=== PATIENT | female | born 1960 | race Caucasian/White ===

== ENCOUNTER 2021-08-25 09:37 | Day surgery (SDC) | payer BC, SELFPAY ==
[2021-08-18 10:09] VITALS: BMI 27.5
--- NOTE | 2021-08-24 16:59 | HP_ITS ---
DATE OF SERVICE: 08/25/2021 PREOPERATIVE DIAGNOSIS: Hallux abductovalgus deformity, right foot. PLANNED PROCEDURE: Right foot Scarf bunionectomy. PAST MEDICAL HISTORY: Anxiety, cancer, gallbladder problems, headaches, sciatica, chronic sinusitis, warts, measles, mumps, chickenpox. CURRENT MEDICATIONS: Allergy medications, calcium, turmeric. PAST SURGICAL HISTORY: ACL and meniscus surgery in 2008; bunionectomy, left foot in 2017. FAMILY HISTORY: Cancer, foot problems, poor circulation, heart disease. ALLERGIES: SEASONAL, NICKEL, COPPER. SOCIAL HISTORY: The patient is a former smoker. Current nonsmoker. Denies any illicit drug use. Relates occasional alcohol use. 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 HOSPITALIZATIONS: Bunionectomy, left foot. REVIEW OF SYSTEMS: Within normal limits. HISTORY OF PRESENT ILLNESS: This is a 61-year-old female, presents with aching and tenderness of her right great toe joint that has been present for several years, has been gradually getting progressively worse, relates pain with standing, pressure and walking. Has tried rest and change in shoes without any significant relief in symptoms. PHYSICAL EXAMINATION: GENERAL: Reveals pleasant, alert, well-nourished, well-developed, well-hydrated individual, who demonstrates proper attention to body habitus, in no acute distress. She is oriented x3. NEUROLOGICAL EXAM: Reveals normal intact sensorium. Pain sensation is normal. Vibratory sensation is intact. Pinprick sensation is normal. There is no anesthesias, burning, or paresthesias bilaterally. VASCULAR EXAM: DP and PT pulses are 2/4 bilaterally. Capillary refill time is immediate to all digits. Skin temperature, elasticity, and turgor are normal bilaterally. Pigmentation is normal. There is no edema. DERMATOLOGICAL EXAM: Reveals normal texture, elasticity, and turgor. The interspaces are clear. There are no masses. There is a scar noted to the left forefoot. ORTHOPEDIC EXAM: Reveals a bunion on the right foot with a medially prominent first metatarsophalangeal joint with pain on palpation. Inflammation is absent and lateral tracking of the first MPJ is incompletely reducible. DIAGNOSTIC DATA: X-ray exam reveals normal bone and soft tissue density for the patient's age and sex. There is increased first intermetatarsal angle about 15 degrees and hallux abductus angle consistent with bunion deformity noted. Hypertrophy of the dorsal and medial first metatarsal head without subchondral cyst. Metatarsus primus elevatus is mild. Metatarsal primus protrusion is -1. Left metatarsus adductus is normal. Sesamoid position is about #6 and is bipartite tibial sesamoid and fibular sesamoid located in the interspace. PLAN: Several types of bunion surgeries were discussed with the patient in detail including, but not limited to modified العلي bunionectomy and Drew or Rex bunionectomy, shaft versus base wedge osteotomies with internal fixation and a Lapidus joint fusion with internal fixation. The risks of having surgery versus not having surgery were discussed as well as potential surgical complications including, but not limited to pain, swelling, bleeding, scarring, numbness, infection, delayed or nonhealing, floppy, unstable, shortened toe, recurrence, failure of the procedure, over-correction leading to plantar flexion downward or upper position of the toe, need for further surgery, as well as the possibility of loss of toe, foot, life, or limb. Discussed the use of local and IV, anesthesia and the usual postoperative course. No guarantees were given. The patient verbally indicated a full understanding of the above conversation and any other questions were answered to their satisfaction. Discussed the benefits and risks specifically of surgery for both the Lapidus versus a midshaft or Scarf bunionectomy. The patient defers Lapidus bunionectomy due to recovery time and wants to proceed with shaft procedure, decided on performing the Scarf bunionectomy. The patient would like to proceed with surgical treatment. She will obtain preoperative labs as well as medical clearance for surgery and anesthesia. She is made aware to stop any blood thinners including [id number] aspirin and fish oils at least 1 week prior to surgery, made aware of the fact that driving may not be allowed during a portion of the postoperative period and not to utilize any smoking tobacco products. The patient will be partial weightbearing to the heel in a surgical shoe or cast boot with crutches. The patient elected not to have a prescription, pain medication and will take [id number] Motrin or Tylenol as needed for any pain. Keisha Majano DPM LP/ELYSSA / [id number]
[2021-08-25] VITALS (7 sets, daily range): BP systolic 85–118; BP diastolic 52–89; PULSE 60–73; RESP 16–20; TEMP 36.1–36.4; O2SAT 93–100
[2021-08-25] MEDS: Lactated Ringers 1,000 ML 50 ML IVCONT (10:07)
--- NOTE | 2021-08-25 10:14 | MHC.SHP ---
Pre-Procedural Eval Section A Date of Service: 08/25/21 The patient is an INPATIENT: No Changes since office visit: No Cold of Flu in the past 2 weeks, No New Medical Problems, No Changes in Medication and No Patient answered all questions The History & Physical has been completed within 30 days and I have reviewed it.: Yes Section B Chief Complaint: hallux valgus right foot Allergies: Allergies Allergy/AdvReac Type Severity Reaction Status Date / Time copper Allergy Rash Verified 08/25/21 09:41 nickel Allergy Rash Verified 08/25/21 09:41 Plan I have reviewed the history and physical and performed a pertinent physical examination on my patient. No changes have occurred unless specified.
--- NOTE | 2021-08-25 11:16 | PM.OP ---
Brief Operative Note Date of Service: 08/25/21 Pre-op diagnosis: Hallux abducto valgus right foot Post-op diagnosis: same Procedure: Right Scarf bunionectomy Implants: Sofy asnis screws 3-0 Surgeon: Keisha Majano Anesthesia: MAC and local Was an Lining Stuffer used for this Procedure?: Yes Lining Stuffer: Kennedy Camacho Estimated blood loss (mL): 5 Tourniquet time (min): 24 Pathology: other Condition: stable Disposition: PACU
[2021-08-25] MEDS: oxyCODONE HCl Immed Release 5 MG TABLET PO (11:55)
--- NOTE | 2021-08-30 16:14 | OP_ITS ---
SURGEON: Keisha Majano DPM PREOPERATIVE DIAGNOSIS: Hallux abductovalgus deformity, right foot. POSTOPERATIVE DIAGNOSIS: Hallux abductovalgus deformity, right foot. PROCEDURE PERFORMED: Right foot Scarf bunionectomy. ESTIMATED BLOOD LOSS: 5 mL. HEMOSTASIS: Pneumatic ankle tourniquet set at 200 mmHg for 24 minutes. COMPLICATIONS: None. ANESTHESIA: Monitored anesthetic care with local consisting preoperatively of 1% lidocaine plain and 0.5% Marcaine plain. ASSISTANTS: Kennedy Camacho DPM. SPECIMENS: Bone right foot INDICATIONS FOR SURGERY: The patient had a painful bunion deformity noted to the right foot that had been getting progressively worse over the last several years. The patient states the pain has not been relieved with any conservative treatments. The above-mentioned surgery was discussed in detail with the patient including risks, benefits, and possible complications. No guarantees were given, and written and oral informed consent was obtained. DESCRIPTION OF PROCEDURE: The patient was brought into the operating room, placed on the table in the supine position. 2 g of cefazolin was administered as a prophylactic preoperative antibiotic. The above-mentioned local anesthetic, 18 mL was administered to the right foot in a regional field block fashion. The right foot was then scrubbed, prepped, and draped in a sterile manner. The foot was exsanguinated, pneumatic ankle tourniquet was inflated to 200 mmHg. Attention was directed to the first metatarsophalangeal joint where an incision was made. The incision was deepened down to subcutaneous tissue with great care being taken to retract vital neural and vascular structures and all bleeders were cauterized as necessary. A medial capsulotomy was made, medial and parallel to the extensor tendons, freeing the first metatarsal head and base of proximal phalanx. The medial eminence of the 1st metatarsal was resected using power instrumentation and passed from the operative site. Attention was directed via the same incision to the first interspace where a lateral release was performed. The deep transverse intermetatarsal ligament, the fibular sesamoidal ligament, and the adductor tendon were transected to allow the head of the first metatarsal to drift into a more corrected position. A McGlammory elevator was also introduced to free up any adhesions around the sesamoid apparatus. Attention was directed back medially where a Z type osteotomy was created with a wing pointing plantarly distally, a wing pointing dorsally proximally, and one long osteotomy connecting the two. The osteotomy was then completed with power instrumentation and the capital fragment was translocated laterally and impacted upon the first shaft with great care being taken not to cause any troughing into the canal. Next, the Sofy Asnis screw set was introduced. Two guide pins were placed. The guide pins then were measured, countersunk and two 16 mm 3-0 Sofy Asnis screws were inserted under standard technique and all guide pins were removed. The remaining medial eminence of the first metatarsal head was resected and passed from the operative site. There was excellent stabilization of the osteotomy and correction of the bunion deformity. The wound was irrigated with normal sterile saline. The capsular structures were reapproximated with 3-0 Vicryl in a continuous running fashion. The skin was reapproximated with 5-0 Monocryl in a continuous running fashion, 4-0 nylon was used as an anchor sutures distally and proximally along the incision. A zip line was then placed overlying the incision. A postoperative injection of 0.5% Marcaine plain 5 mL and 1 mL of dexamethasone was administered. The incision was then dressed with Adaptic, Betadine-soaked gauze, 4x4s, fluffs, Kerlix, cast padding, and Donovan bandage. Pneumatic ankle tourniquet was deflated. Prompt capillary refill was noted to all 5 digits. The patient tolerated procedure and anesthesia well. She was transferred to recovery room with vital signs stable and vascular status at preoperative levels. Following a period of postoperative recovery, the patient will be discharged home with written and oral postoperative instructions. She will be partial weightbearing to the heel in a surgical shoe using crutches or a knee scooter, and will follow up in my office for all postoperative followup. Keisha Majano DPM LP/ELYSSA / [id number] LINDA
== END 2021-08-25 12:50 | disposition home or self-care (01) ==
PROVIDERS: PCP Pediatrics; Visit Provider Podiatrist
PROC: (CPT 28292; principal; 2021-08-25 10:30)
DX: M20.11 Hallux valgus (acquired), right foot (principal); M21.611 Bunion of right foot; Z87.891 Personal history of nicotine dependence
CPT/HCPCS: 28292; 88304; 88311; C1713; J0690; J1100; J2250; J3010

== ENCOUNTER 2025-06-30 10:08 | Outpatient (AMB) | payer BC, SELFPAY ==
--- OUTSIDE RECORDS SUMMARY | 2025-06-30 11:23 | XMS_ITS | Clinical Summary ---
Author Organization [facility] [address] [facility] Building Address [address] [facility] [place] [address] Phone Care Team Providers Care Sales Training Coordinator Name Role Phone Chintan Rust MD Primary Care Provider Allergies Active Allergy Reactions Criticality Noted Date Comments Copper Rash 07/06/2014 Nickel Rash 07/06/2014 Other Itching 07/06/2014 Seasonal allergies Medications NON FORMULARY ALLERGY INJECTIONS- Once a week Active aspirin 81 mg EC tablet Take 1 tablet (81 mg total) by mouth 1 (one) time each day. Active calcium carb/vit D3/minerals (CALCIUM-VITAMI N D ORAL) Take by mouth. Active turmeric root extract 500 mg capsule Take 250 mg by mouth 1 (one) time each day. Active calcium carbonate (OS-MARIELOS) 1250 mg (500 mg elemental calcium) chewable tablet Chew 500 mg. 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 Followed by [employer] SALES REPRESENTATIVE Seasonal allergies 07/06/2014 Overview (10/30/2024): Dr Espinoza Immunizations Name Administration Dates Next Due Moderna SARS-CoV-2 COVID-19, mRNA, LNP-S, preservative free 02/27/2021 Td Tetanus diptheria (Tdvax) 7yo and older 03/01 Tdap Tetanus diptheria acell ular pertussis (Boostrix; Adacel) 7yo and older 05/05/2021 Surgical History Surgery Date Site/Laterality Comments KNEE SURGERY 11/12/2007 Left PROCEDURE: HISTORICAL KNEE SURGERY CHOLECYSTECTOMY 11/12/2002 PROCEDURE: FL CHOLECYSTECTOMY; COMMENT: complications, required reconstruction of bile duct HAND SURGERY 11/12/1980 Left PROCEDURE: FL UNLISTED PROCEDURE HANDS/FINGERS WISDOM TOOTH EXTRACTION 11/12/2003 Bilateral PROCEDURE: HISTORICAL WISDOM TEETH EXTRACTION FOOT SURGERY 08/25/2021 Right PROCEDURE: HISTORICAL FOOT SURGERY; COMMENT: Surgery on her Hallux Abductovalgus deformity Medical History Medical History Date Comments Seasonal allergies DX:Seasonal a llergies; COMMENT: Allergy shots, Dr. Espinoza BCC (basal cell carcinoma), face 2011 DX:BCC (basal cell carcinoma), face; COMMENT: Dr. Franklin Family History Medical History Relation Name Comments Throat cancer Brother 1 Lung cancer Father Colon cancer Mother's side aunt ADD / ADHD Son 1 ADD / ADHD Son 2 Relation Name Status Comments Brother 1 Brother 2 Alive Healthy Brother 3 Alive Heart Problem Father (Age 74) Lung CA, s moker, CHF, high cholesterol Maternal Grandfather Heart A ttack Maternal Grandmother Heart A ttack Mother Alive 80 yrs ,High ch olesterol ,HTN,Depression Mother's side aunt Paternal Grandfather Old age Paternal Grandmother Stroke Son 1 Alive Healthy Son 2 Alive Healthy Son 3 Alive Healthy Social History Tobacco Use Types Packs/Day Years Used Date Smoking Tobacco: Former Cigarettes Q uit: 07/06/1996 Smokeless Tobacco: Never Alcohol Use Standard Drinks/Week Comments Yes 6 (1 standard drink = 0.6 oz pur e alcohol) Housing Instability Answer Date Recorde d Are you worried that in the next 2 months you may not have stable housing? No 12/19/2024 Food Access & Nutrition Answer Date Rec orded Do you have access to a vari ety of food including fruits and vegetables? Yes 12/19/2024 Health Literacy Answer Date Recorded How often do you need to hav e someone help you when you read instructions, pamphlets, or other written material from your doctor or pharmacy? Rarely 12/19/2024 Caregiver: How often do you need to have someone help you when you read instructions, pamphlets, or other written material from your doctor or pharmacy? Not on file 12/19/2024 Financial Risk Answer Date Recorded How hard is it for you to pa y for the very basics like food, housing, medical care, and air conditioning / heating? Not very hard 12/19/2024 Transportation Answer Date Recorded Has the lack of transportati on kept you from meetings, work, or from getting things needed for daily living? No Has the lack of transportati on kept you from medical appointments or from getting medications? No 12/19/2024 Social Isolation Answer Date Recorded How often do you feel lonely or isolated from th ose around you? Rarely 12/19/2024 Food Risk Answer Date Recorded Within the past 12 months we worried whether our food would run out before we got money to buy more. Never true 12/19/2024 Within the past 12 months th e food we bought just didn't last and we didn't have money to get more. Never true 12/19/2024 Dependent Care Answer Date Recorded Do you need help finding or paying for care for your loved ones. For example, children's court magistrate or elderly care for an older adult? No 12/19/2024 Education Answer Date Recorded Do you think completing more education or training, like finishing a GED, going to college, or learning a trade, would be helpful for you? No 12/19/2024 Employment and Income Answer Date Recor ded During the last four weeks, have you been actively looking for work? No 12/19/2024 Living Situation Answer Date Recorded What is your living situation? 0 12/19/2024 Comments No Sex and Gender Information Value Date Recorded Sex Assigned at Not on file Legal Sex Female 2:25 PM EST Gender Identity Not on file Sexual Orientation Not on file Obstetrics History Para Term AB IAB SAB Ectopic Multiple Livin g Live Births 4 3 3 1 1 3 3 Date Outcome GA Total Labor Labor/2nd/3rd Weight Sex Type Anes PTL Frances A1 A5 Name Clin Term M Vag-S pont Living Term M Vag-S pont Living Term M Vag-S pont Living IAB Last Filed Vital Signs Vital Sign Reading Time Taken Comments Blood Pressure 119/64 12/25/2024 2:48 PM EST Pulse 68 12/25/2024 2:48 PM EST Temperature - - Respiratory Rate - - Oxygen Saturation - - Inhaled Oxygen Concentration - - Weight 66.7 kg (147 lb) 12/25/2024 2:48 PM EST Height 158.8 cm (5' 2.5 ) 12/25/2024 2:48 PM EST Body Mass Index 26.46 12/25/2024 2:48 PM EST Plan of Treatment Health Maintenance Due Date Last Done Comments Breast Cancer Screening 1962 Zoster Vaccines (1 of 2) 1981 Pneumococcal Vaccine: 50+ Years (1 of 1 - PCV) 2012 Colorectal Cancer Screening: Colonoscopy 10/21/2022 HIV Screening 10/21/2022 COVID-19 Vaccine ( season) 2024 04/30/2022, 11/03/2021, 03/27/2021, Additional history exists Influenza Vaccine (#1) 2025 10/03/2022 Social Influencers of Health Screening 12/19/2025 12/19/2024 Cholesterol Screening (Lipid Panel) 08/24/2027 08/24/2022 Cervical Cancer Screening: HPV 06/17/2029 06/17/2024 DTaP,Tdap,and Td Vaccines (4 - Td or Tdap) 04/30/2032 04/30/2022, 05/05/2021, 03/01/2009 RSV Immunization Adult Patients (1 - 1-dose 75+ series) 2037 Hepatitis C Screening Completed 06/28/2015 Depression Screening Completed 12/25/2024 HIB Vaccines Aged Out No longer eligi ble based on patient's age to complete this topic HPV Vaccines Aged Out No longer eligi ble based on patient's age to complete this topic Hepatitis A Vaccines Aged Out No long er eligible based on patient's age to complete this topic Hepatitis B Vaccines Aged Out No long er eligible based on patient's age to complete this topic IPV Vaccines Aged Out No longer eligi ble based on patient's age to complete this topic MMR Vaccines Aged Out No longer eligi ble based on patient's age to complete this topic Meningococcal ACWY Vaccine Aged Out N o longer eligible based on patient's age to complete this topic Meningococcal B Vaccine Aged Out No l onger eligible based on patient's age to complete this topic RSV Immunization Patients Under 20 months Aged Out No longer eligible based on patient's age to complete this topic Varicella Vaccines Aged Out No longer eligible based on patient's age to complete this topic Procedures Procedure Name Priority Date/Time Associated Diagnosis Comments HPV Routine 06/17/2024 LIPID PANEL Routine 08/24/2022 HEPATITIS C SCREENING Routine 06/28/2015 from Last 3 Months or Most Recently Relevant to Health Maintenance Results * Cervical Cancer Screening: HPV (06/17/2024) Pathologist [facility] Cervical Cancer Screening: HPV negative, abstracted [facility] Provider HEALTH MAINTENANCE Final Result * (ABNORMAL) Lipid panel (08/24/2022) Pathologist [facility] LDL/HDL Ratio 3 0 - 4 Triglycerides 181(A) 0 - 150 mg/dL Cholesterol 226(A) 0 - 200 mg/dL HDL 76 >=40 mg/dL LDL Cholesterol 114(A) 0 - 100 mg/dL Blood Venous blood specimen / Unknown [facility] Provider LAB BLOOD ORDERABLES Fanta l Result * Hepatitis C Screening (06/28/2015) Pathologist [facility] Hepatitis C Screening abstracted [facility] Provider HEALTH MAINTENANCE Final Result from Last 3 Months or Most Recently Relevant to Health Maintenance Insurance [employer] [employer] [facility] [place] [facility]) Care Teams Sales Training Coordinator Relationship Specialty Start Date End Date Chintan Rust MD [address] [place] [address] PCP - General Internal Medicine 05/25/22
--- OUTSIDE RECORDS SUMMARY | 2025-06-30 11:23 | XMS_ITS | Patient Health Record ---
[facility] Address [address] [place] [address] Care Team Providers Care Child Care Sitter Name Role Phone Maria Elena HUBBARD, Kristy Primary Care Provider Un available Keisha Majano Unavailable [phone] Allergies Allergen (clinical drug ingredient) Drug/Non Drug Allergy documented on EMR Reaction Allergy Type Onset Date Status Seasonale Unknown Drug Allergy Active copper Copper Unknown Drug Allergy Active nickel Nickel Unknown Allergy Active Reason For Referral No Information Medications Medication SIG (Take, Route, Frequency, Duration) Notes Start Date End Date Status Allergy Active Calcium Active Turmeric Active Walking Boot/Pneumatic As directed Wear Daily; Duration: Until further notice 08/30/2021 Active Ibuprofen 800 MG 1 tablet with food o r milk as needed Orally Three times a day; Duration: 20 day(s) 08/25/2021 Not-Taking Ibuprofen 800 MG 1 tablet with food o r milk as needed Orally Three times a day; Duration: 20 day(s) 08/25/2021 Not-Taking Fluorouracil Not-Will ing Linezolid 10/22/2017 Not-Takin g Immunizations Vaccine Route Administration Date Status Comme nts COVID-19 Moderna Vaccine Unknown 11/03/2021 Administered First Dose: 02/10/21 Second Dose: 03/2021 Social History Tobacco Use: Social History Observation Description Date Details (start date - stop date) Former Smoker NA - NA Tobacco Use/Smoking Question Answer Notes Are you a: former smoker When did you stop smoking? 2000 Additional Findings: Tobacco Non-User Ex-heavy c igarette smoker (20-30/day) Tobacco use other than smoking: Question Answer Notes Are you an other tobacco user? No Problems Problem Type SNOMED Code ICD Code Onset Dates Problem Status W/U Status Risk Notes Problem Acquired hallux valgus (55493274) Hallux valgus (acquired), right foot (M20.11) Active confirmed Plan Of Treatment Pending Test Test Name Order Date X ray : Foot, right 3V 08/30/2021 X ray : Foot, right 3V 09/06/2021 X ray : Foot, right 3V 09/20/2021 X ray : Foot, right 3V 10/10/2021 X ray : Foot, right 3V 11/09/2021 [id number] 01/14/2018 Insurance Providers Payer Name Payer Address Payer Phone Subscriber Number Group Number Insured Name Patient Relationship to Insured Coverage Start Date Coverage End Date Meena [facility] [address] [place] [address] [id number] Roge Zelaya Spouse - patient is the spouse of the insured Medical (General) History Medical History History ICD Code Anxiety Cancer Gall bladder problems Headaches Sciatica chronic sinusitis Warts Measles Mumps Chicken pox Surgical History Surgery Date(Month/Year) ACL + Meniscus repair, Left 2007 bunionectomy 07/25/2017 Scarf Bunionectomy right 08/25/2021 Hospitalization History Reason Date(Month/Year) Spine Bunion left foot 07/25/17
== END 2025-06-30 10:47 | disposition home or self-care (01) ==
LOC: HO.HMGAL 10:08
PROVIDERS: PCP Pediatrics; Visit Provider Registered Nurse Emergency
DX: J30.89 Other allergic rhinitis (principal)
CPT/HCPCS: 95117; 95165

== ENCOUNTER 2025-07-15 11:37 | Outpatient (AMB) | payer BC, SELFPAY | END 2025-07-15 12:41 | disposition home or self-care (01) | LOC: HO.HMGAL 11:37 | PROVIDERS: PCP Pediatrics; Visit Provider Registered Nurse Emergency | DX: J30.89 Other allergic rhinitis (principal) | CPT/HCPCS: 95117; 95165 ==

== ENCOUNTER 2025-07-22 11:03 | Outpatient (AMB) | payer BC, SELFPAY ==
--- OUTSIDE RECORDS SUMMARY | 2025-07-22 14:06 | XMS_ITS ---
Author Name [facility] Organization Unknown Care Team Organization Name Specialty Phone Email Start Date End Da [facility] 07/01/2025
--- OUTSIDE RECORDS SUMMARY | 2025-07-22 14:06 | XMS_ITS | Clinical Summary ---
Author Organization [facility] [address] [facility] Building Address [address] [facility] [place] [address] Phone Care Team Providers Care Pigment Mixer Name Role Phone Chintan Rust MD Primary [...] with calcium and vit D. Followed by OWNER ORAL SURGEON Seasonal allergies 07/06/2014 Overview (10/30/2024): Dr Espinoza Immunizations Name Administration Dates Next Due Moderna SARS-CoV-2 COVID-19, mRNA, LNP-S, preservative free 02/27/2021 Td Tetanus diptheria (Tdvax) 7yo and older 03/01 Tdap Tetanus diptheria acell ular pertussis (Boostrix; Adacel) 7yo and older 05/05/2021 Surgical History Surgery Date Site/Laterality Comments KNEE SURGERY 11/12/2007 Left PROCEDURE: HISTORICAL KNEE SURGERY CHOLECYSTECTOMY 11/12/2002 PROCEDURE: [place] CHOLECYSTECTOMY; COMMENT: complications, required reconstruction of bile duct HAND SURGERY 11/12/1980 Left PROCEDURE: [place] UNLISTED PROCEDURE HANDS/FINGERS WISDOM TOOTH EXTRACTION 11/12/2003 [...] care for your loved ones. For example, child care supervisor or elderly care for an older adult? [...] Sexual Orientation Not on file Obstetrics History * This document contains information received from the source organization and may not represent a complete record from that organization. Para Term AB IAB SAB Ectopic Multiple Livin g Live Births 4 3 3 3 3 Date Outcome GA Total Labor Labor/2nd/3rd Weight Sex Type Anes PTL Frances A1 A5 Name Clin Term M Vag-S pont Living Term M Vag-S pont Living Term M Vag-S pont Living Last Filed Vital Signs Vital Sign Reading [...] HIV Screening 10/21/2022 COVID-19 Vaccine ( season) 2025 04/30/2022, 11/03/2021, 03/27/2021, Additional history exists Influenza [...] Results * Cervical Cancer Screening: HPV (06/17/2024) [facility] Cervical Cancer Screening: HPV negative, abstracted [facility] Provider HEALTH MAINTENANCE Final Result * (ABNORMAL) Lipid panel (08/24/2022) [facility] LDL/HDL Ratio 3 0 - 4 Triglycerides 181(A) 0 - 150 mg/dL Cholesterol 226(A) 0 - 200 mg/dL HDL 76 >=40 mg/dL LDL Cholesterol 114(A) 0 - 100 mg/dL Blood Venous blood specimen / Unknown [facility] Provider LAB BLOOD ORDERABLES Fanta l Result * Hepatitis C Screening (06/28/2015) [facility] Hepatitis C Screening abstracted [facility] Provider HEALTH MAINTENANCE Final Result from Last 3 Months or Most Recently Relevant to Health Maintenance Insurance [employer] [place] Care Teams Pigment Mixer Relationship Specialty Start Date End Date Chintan Rust MD [address] [place] [address] PCP - General Internal Medicine 05/25/22
--- OUTSIDE RECORDS SUMMARY | 2025-07-22 14:06 | XMS_ITS | Patient Health Record ---
Author Organization [facility] Address [address] [place] [address] Care Team Providers Care Forest Logistics Manager Name Role Phone Maria Elena HUBBARD, Kristy Primary Care Provider Un available Keisha Majano Unavailable [phone] Allergies Allergen (clinical drug ingredient) Drug/Non Drug [...] Status Risk Notes Problem Acquired hallux valgus (48549365) Hallux valgus (acquired), right foot (M20.11) Active confirmed Plan Of Treatment Pending Test Test Name Order Date X ray : Foot, right 3V 08/30/2021 X ray : Foot, right 3V 09/06/2021 X ray : Foot, right 3V 09/20/2021 X ray : Foot, right 3V 10/10/2021 X ray : Foot, right 3V 11/09/2021 [id number] Plate 01/14/2018 Insurance Providers Payer Name Payer Address Payer Phone Subscriber Number Group Number Insured Name Patient Relationship to Insured Coverage Start Date Coverage End Date Meena [facility] [address] [place] [address] [id number] Roge Zelaya Spouse - patient is [...]
== END 2025-07-22 11:34 | disposition home or self-care (01) ==
LOC: HO.HMGAL 11:03
PROVIDERS: PCP Pediatrics; Visit Provider Registered Nurse Emergency
DX: J30.89 Other allergic rhinitis (principal)
CPT/HCPCS: 95117; 95165

== ENCOUNTER 2025-07-29 12:00 | Outpatient (AMB) | payer BC, SELFPAY ==
--- OUTSIDE RECORDS SUMMARY | 2025-07-29 15:30 | XMS_ITS | Patient Health Record ---
Author Organization [facility] Address [address] [facility] [place] [address] Care Team Providers Care Biometric Fingerprinting Technician Name Role Phone Maria Elena HUBBARD, Kristy Primary Care Provider Un available Keisha Majano Unavailable [phone] Allergies Allergen (clinical drug ingredient) Drug/Non Drug [...] Status Risk Notes Problem Acquired hallux valgus ([id number]) Hallux valgus (acquired), right foot (M20.11) Active confirmed Plan Of Treatment Pending Test Test Name Order Date X ray : Foot, right 3V 08/30/2021 X ray : Foot, right 3V 09/06/2021 X ray : Foot, right 3V 09/20/2021 X ray : Foot, right 3V 10/10/2021 X ray : Foot, right 3V 11/09/2021 [id number] Plate 01/14/2018 Insurance Providers Payer Name Payer Address Payer Phone Subscriber Number Group Number Insured Name Patient Relationship to Insured Coverage Start Date Coverage End Date Meena [facility] [address] [place] [address] [id number] Roge Zelaya Spouse - patient is [...]
== END 2025-07-29 12:01 | disposition home or self-care (01) ==
LOC: HO.HMGAL 12:00
PROVIDERS: PCP Pediatrics; Visit Provider Registered Nurse Emergency
DX: J30.89 Other allergic rhinitis (principal)
CPT/HCPCS: 95117; 95165

== ENCOUNTER 2025-08-19 14:31 | Outpatient (AMB) | payer BC, SELFPAY | END 2025-08-19 14:38 | disposition home or self-care (01) | LOC: HO.HMGAL 14:31 | PROVIDERS: PCP Internal Medicine; Visit Provider Registered Nurse Emergency | DX: J30.89 Other allergic rhinitis (principal) | CPT/HCPCS: 95117; 95165 ==

== ENCOUNTER 2025-08-31 11:56 | Outpatient (AMB) | payer BC, SELFPAY | END 2025-08-31 11:57 | disposition home or self-care (01) | LOC: HO.HMGAL 11:56 | PROVIDERS: PCP Internal Medicine; Visit Provider Registered Nurse Emergency | DX: J30.89 Other allergic rhinitis (principal) | CPT/HCPCS: 95117; 95165 ==

== ENCOUNTER 2025-09-09 11:00 | Outpatient (AMB) | payer BC, SELFPAY ==
--- OUTSIDE RECORDS SUMMARY | 2025-09-09 13:55 | XMS_ITS | Patient Health Record ---
Author Organization [facility] Address [address] [place] [address] Care Team Providers Care Technician Support Association Name Role Phone Maria Elena HUBBARD, Kristy Primary Care Provider Un available Keisha Majano Unavailable [phone] Allergies Allergen (clinical drug ingredient) Drug/Non Drug [...] Status Risk Notes Problem Acquired hallux valgus (98008051) Hallux valgus (acquired), right foot (M20.11) Active confirmed Plan Of Treatment Pending Test Test Name Order Date X ray : Foot, right 3V 08/30/2021 X ray : Foot, right 3V 09/06/2021 X ray : Foot, right 3V 09/20/2021 X ray : Foot, right 3V 10/10/2021 X ray : Foot, right 3V 11/09/2021 [id number] Plate 01/14/2018 Insurance Providers Payer Name Payer Address Payer Phone Subscriber Number Group Number Insured Name Patient Relationship to Insured Coverage Start Date Coverage End Date Meena [facility] [address] [place] [address] [id number] Roge Zelaya Spouse - patient is [...]
--- OUTSIDE RECORDS SUMMARY | 2025-09-09 13:55 | XMS_ITS | Clinical Summary ---
Author Organization [facility] [address] [facility] Building Address [address] [place] [address] Phone Care Team Providers Care Us Administrative Law Judge Name Role Phone Chintan Rust MD Primary Care Provider Allergies Active Allergy Reactions Criticality Noted Date Comments Copper Rash 07/06/2014 Nickel Rash 07/06/2014 Other Itching 07/06/2014 Seasonal allergies Medications NON FORMULARY ALLERGY INJECTIONS- Once a week Active aspirin 81 mg EC tablet Take 1 tablet (81 mg total) by mouth 1 (one) time each day. Active calcium carb/vit D3/minerals (CALCIUM-VITAM IN D ORAL) Take by mouth. Active turmeric root extract 500 mg capsule Take 250 mg by mouth 1 (one) time each day. Active rosuvastatin (CRESTOR) 5 mg tablet Take 1 tablet (5 mg total) by mouth 1 (one) time each day. 30 each 5 Active lisinopriL (PRINIVIL,ZEST RIL) 10 mg tablet TAKE 1 TABLET BY MOUTH 1 TIME EACH DAY. 90 tablet 1 5 Active calcium carbonate (OS-MARIELOS) 1250 mg (500 mg elemental calcium) chewable tablet Chew 500 mg. 08/14/20 25 Discontinued lisinopriL (PRINIVIL,ZEST RIL) 10 mg tablet Take 1 tablet (10 mg total) by mouth 1 (one) time each day. 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 Followed by DIRECTOR OF SPECIAL SERVICES Seasonal allergies 07/06/2014 Overview (10/30/2024): Dr Espinoza Encounters Date Type Department Care Team Description 08/27/2025 9:00 AM EDT Consult Orthopedic Surgery - [place] [address] [place] [address] Amauri De La Torre MD Bilateral carpal tunnel syndrome (Primary Dx); Right elbow pain 08/14/2025 11:01 AM EDT - 08/14/2025 11:59 PM EDT Hospital Encounter [address] [phone] Right upper extremity numbness; Neck pain Discharge Disposition: Home or Self Care 08/14/2025 10:30 AM EDT Office Visit Adult [address] [phone] Chintan Rust MD Primary hypertension (Primary Dx); Right upper extremity numbness; Neck pain; Carpal tunnel syndrome of right wrist; Vertebrobasilar insufficiency; Osteopenia, unspecified location; Prediabetes; Mixed hyperlipidemia 08/14/2025 Results Follow-Up Adult [address] [phone] Chintan Rust MD 08/14/2025 Telephone Adult [address] [phone] Chintan Rust MD from Last 3 Months Immunizations Immunization Administration Dates Next Due Moderna SARS-CoV-2 COVID-19, mRNA, LNP-S, preservative free 02/27/2021 Td Tetanus diptheria (Tdvax) 7yo and older 03/01 Tdap Tetanus diptheria acell ular pertussis (Boostrix; Adacel) 7yo and older 05/05/2021 Surgical History Surgery Date Site/Laterality Comments KNEE SURGERY 11/12/2007 Left PROCEDURE: HISTORICAL KNEE SURGERY CHOLECYSTECTOMY 11/12/2002 PROCEDURE: [place] CHOLECYSTECTOMY; COMMENT: complications, required reconstruction of bile duct HAND SURGERY 11/12/1980 Left PROCEDURE: [place] UNLISTED PROCEDURE HANDS/FINGERS WISDOM TOOTH EXTRACTION 11/12/2003 [...] do you feel lonely or isolated from ose around you? Rarely 12/19/2024 Food Risk [...] for your loved ones. For example, child and adolescent therapist or elderly care for an older adult? [...] Date Recorded What is your living situation? Unrecognized valu e 12/19/2024 Comments No Sex and Gender Information [...] Sign Reading Time Taken Comments Blood Pressure 138/94 08/14/2025 10:45 AM EDT Pulse 84 08/14/2025 10:25 AM EDT Temperature 36.1 C (96.9 F) 08/14/2025 10:25 AM EDT Respiratory Rate - - Oxygen Saturation - - Inhaled Oxygen Concentration - - Weight 64.9 kg (143 lb) 08/27/2025 9:02 AM EDT Height 158.8 cm (5' 2.5 ) 08/27/2025 9:02 AM EDT Body Mass Index 25.74 08/27/2025 9:02 AM EDT Plan of Treatment Upcoming Encounters Date Type Department Care Team (Late st Contact Info) Description 09/14/2025 2:45 PM EST Office Visit Adult Medicine [address] [phone] Chintan Rust MD [address] [place] [address] 11/26/2025 9:00 AM EST Office Visit Orthopedic Surgery [facility] [address] [facility] [address] [place] [address] Amauri De La Torre MD [address] [place] [address] Health Maintenance Due Date Last Done Comments Breast Cancer Screening 1962 Colorectal Cancer Screening: Colonoscopy 1962 Zoster Vaccines (1 of 2) 1981 Pneumococcal Vaccine: 50+ Years (1 of 1 - PCV) 2012 HIV Screening 10/21/2022 COVID-19 Vaccine ( season) 2025 04/30/2022, 11/03/2021, 03/27/2021, Additional history exists Influenza Vaccine (#1) 2025 10/03/2022 Social Influencers of Health Screening 12/19/2025 12/19/2024 Hypertension/CHF/CAD Annual BMP Blood Test 08/14/2026 08/14/2025, 03/02/2023 Cervical Cancer Screening: HPV 06/17/2029 06/17/2024 Cholesterol Screening (Lipid Panel) 08/14/2030 08/14/2025, 08/24/2022 DTaP,Tdap,and Td Vaccines (4 - Td or [...] Procedure Name Priority Date/Time Associated Diagnosis Comments HEMOGLOBIN A1C Routine 08/14/2025 11:28 AM EDT Right upper extremity numbness Carpal tunnel syndrome of right wrist Vertebrobasilar insufficiency Osteopenia, unspecified location Prediabetes Mixed hyperlipidemia Primary hypertension LIPID PANEL WITH REFLEX TO DIRECT LDL Routine 08/14/2025 11:28 AM EDT Right upper extremity numbness Carpal tunnel syndrome of right wrist Vertebrobasilar insufficiency Osteopenia, unspecified location Prediabetes Mixed hyperlipidemia Primary hypertension BASIC METABOLIC PANEL Routine 08/14/2025 11:28 AM EDT Right upper extremity numbness Carpal tunnel syndrome of right wrist Vertebrobasilar insufficiency Osteopenia, unspecified location Prediabetes Mixed hyperlipidemia Primary hypertension VITAMIN B12 Routine 08/14/2025 11:28 AM EDT Right upper extremity numbness Carpal tunnel syndrome of right wrist Vertebrobasilar insufficiency Osteopenia, unspecified location Prediabetes Mixed hyperlipidemia Primary hypertension XR CERVICAL SPINE 4-5 VIEWS Routine 08/14/2025 11:12 AM EDT Right upper extremity numbness Neck pain HPV Routine 06/17/2024 HEPATITIS C SCREENING Routine 06/28/2015 from Last 3 Months or Most Recently Relevant to Health Maintenance Results * (ABNORMAL) Lipid panel with reflex to direct LDL (08/14/2025 11:28 AM EDT) Cholesterol 242(H) 0 - 200 mg/dL LAB CHEMISTRY METHOD [facility]/14[facility]2025 4:[facility] Triglycerides 133 0 - 150 mg/dL LAB CHEMISTRY METHOD 08/14/2025 4:37 PM [facility] HDL 78 >=40 mg/dL LAB CHEMISTRY METHOD 08/14/2025 4:37 PM T [facility] LDL Calculated 137(H) 0 - 100 mg/dL LAB CHEMISTRY METHOD 08/14/2025 4:37 PM T [facility] Comment:Estimated LDL Calcul ated using equation: Total cholesterol - HDL cholesterol - (Triglycerides/5) VLDL Cholesterol Marielos 26.6 mg/dL LAB CHEMISTRY METHOD 08/14/2025 4:37 PM [facility] Non HDL Chol. (LDL+VLDL) 164(H) <145 mg/dL LAB CHEMISTRY METHOD 08/14/2025 4:37 PM EDT [facility] Chol/HDL Ratio 3.1 0.0 - 4.4 LAB CHEMISTRY METHOD 08/14/2025 4:37 PM [facility] Blood Venous blood specimen / Unknown Venipuncture / Unknown 08/14/2025 11:28 AM EDT 08/14/2025 11:28 AM EDT us Chintan Rust MD LAB BLOOD ORDERABLES Final Result Performing Organization Address City/[facility]/ZIP Co de Phone Number [facility] [address] [place] [address], [place] [phone] * Hemoglobin A1c (08/14/2025 11:28 AM EDT) [facility] Hemoglobin A1C 5.8 <6.5 % LAB CHEMISTRY METHOD 08/14/2025 8:26 PM EDT [facility] Mean Bld Glu Estim. 120 mg/dL LAB CHEMISTRY METHOD 08/14/2025 8:26 PM EDT [facility] Blood Venous blood specimen / Unknown Venipuncture / Unknown 08/14/2025 11:28 AM EDT 08/14/2025 11:28 AM EDT Chintan Rust MD LAB BLOOD ORDERABLES Final Result Performing Organization Address [facility]/ZIP Co de Phone Number [facility] [address] [place] [address], [place] [phone] * Vitamin B12 (08/14/2025 11:28 AM EDT) [facility] Vitamin B-12 331 250 - 900 pcg/mL LAB CHEMISTRY METHOD 08/14/2025 4:37 PM EDT [facility] Blood Venous blood specimen / Unknown Venipuncture / Unknown 08/14/2025 11:28 AM EDT 08/14/2025 11:28 AM EDT Chintan Rust MD LAB BLOOD ORDERABLES Final Result [facility] [address] [place] [address], [place] [phone] * Basic metabolic panel (08/14/2025 11:28 AM EDT) [facility] Sodium 139 133 - 145 mmol/L LAB CHEMISTRY METHOD 08/14/2025 4:13 PM [facility] Potassium 4.1 3.5 - 5.5 mmol/L LAB CHEMISTRY METHOD 08/14/2025 4:13 PM [facility] Chloride 106 96 - 110 mmol/L LAB CHEMISTRY METHOD 08/14/2025 4:13 PM [facility] CO2 27 21 - 32 mmol/L LAB CHEMISTRY METHOD 08/14/2025 4:13 PM [facility] Anion Gap 6 3 - 11 LAB CHEMISTRY METHOD 08/14/2025 4:13 PM [facility] Glucose 93 70 - 100 mg/dL LAB CHEMISTRY METHOD 08/14/2025 4:13 PM [facility] BUN 10 5 - 25 mg/dL LAB CHEMISTRY METHOD 08/14/2025 4:13 PM [facility] Creatinine 0.61 0.50 - 1.10 mg/dL LAB CHEMISTRY METHOD 08/14/2025 4:13 PM [facility] eGFR 101 >=60 mL/min/1. 73m2 LAB CHEMISTRY METHOD 08/14/2025 4:13 PM [facility] Comment:Calculation based on the Chronic Kidney Disease Epidemiology Collaboration (CKD-EPI) equation refit without adjustment for race. BUN/Creatinine Ratio 16.4 LAB CHEMISTRY METHOD 08/14/2025 4:13 PM [facility] Calcium 9.9 8.5 - 10.5 mg/dL LAB CHEMISTRY METHOD 08/14/2025 4:13 PM [facility] Blood Venous blood specimen / Unknown Venipuncture / Unknown 08/14/2025 11:28 AM EDT 08/14/2025 11:28 AM EDT us Chintan Rust MD LAB BLOOD ORDERABLES Final Result [facility] [address] [place] [address], * XR Cervical Spine 4-5 Views (08/14/2025 11:12 AM EDT) Anatomical Region Laterality Modality Spine, C-spine Radiographic Ayana ging 08/14/2025 2:37 PM EDT Impressions 08/14/2025 2:39 PM EDT Spondylosis and neural foraminal narrowing as described. -------- FINAL REPORT -------- Dictated By: Barbara Conley Dictated Date: 08/14/2025 14:37 ET Assigned Physician: Barbara Conley Reviewed and Electronically Signed By: Barbara Conley Signed Date: 08/14/2025 14:39 ET Workstation ID: [id number] Transcribed By: Self Edit Transcribed Date: 08/14/2025 14:37 ET Narrative 08/14/2025 2:39 PM EDT CERVICAL SPINE, 4 VIEWS HISTORY: Neck pain. FINDINGS: There is normal alignment of the cervical spine. No fracture or dislocation is seen. The paravertebral soft tissues are unremarkable. There is mild disc space narrowing with endplate spurring at C5-6. There is moderate disc space narrowing with endplate spurring at C6-7. There is mild bilateral neuroforaminal narrowing from osteophytes at C6-7. Procedure Note Barbara Conley MD - 08/14/2025 CERVICAL SPINE, 4 VIEWS HISTORY: Neck pain. FINDINGS: There is normal alignment of the cervical spine. No fracture ordislocation is seen. The paravertebral soft tissues are unremarkable. There is mild disc space narrowing with endplate spurring at C5-6. Thereis moderate disc space narrowing with endplate spurring at C6-7. There is mild bilateral neuroforaminal narrowing from osteophytes atC6-7. IMPRESSION: Spondylosis and neural foraminal narrowing as described. -------- FINAL REPORT -------- Dictated By: Barbara Conley Dictated Date: 08/14/2025 14:37 ET Assigned Physician: Barbara Conley Reviewed and Electronically Signed By: Barbara Conley Signed Date: 08/14/2025 14:39 ET Workstation ID: [id number] Transcribed By: Self Edit Transcribed Date: 08/14/2025 14:37 ET Chintan Rust MD IMG XR PROCEDURES Final Res ult * Cervical Cancer Screening: HPV (06/17/2024) Cervical Cancer Screening: HPV negative, abstracted Historical Provider HEALTH MAINTENANCE Final Result * Hepatitis C Screening (06/28/2015) Hepatitis C Screening abstracted Historical Provider HEALTH MAINTENANCE Final Result from Last 3 Months or Most Recently Relevant to Health Maintenance Insurance [facility]) Care Teams Us Administrative Law Judge Relationship Specialty Start Date End Date Chintan Rust MD [address] [place] [address] PCP - General Internal Medicine 05/25/22
--- OUTSIDE RECORDS SUMMARY | 2025-09-09 13:55 | XMS_ITS | Encounter Summary ---
Author Organization [facility] Address [address] [place] [address] Care Team Providers Care Plant Engineer Name Role Phone Chintan Rust MD Primary Care Provider [phone] Reason for Visit * Reason Onset Date Comments Results 08/14/2025 Encounter Details Date Type Department Care Team ([facility] st Contact Info) Description 08/14/2025 Results Follow-Up Adult Medicine [address] [phone] Chintan Rust MD [address] [place] [address] Social History Tobacco Use Types Packs/Day Years [...] care for your loved ones. For example, plant health care technician or elderly care for an older adult? [...] on file Sexual Orientation Not on file documented as of this encounter Progress Notes * Jasper Orellana MA - 08/17/2025 12:34 PM EDT Message left for patient to return call. * Jasper Orellana MA - 08/17/2025 12:34 PM EDT ----- Message from Larry Rust MD sent at 08/14/2025 8:24 PM EDT ----- Please inform the patient that x-ray cervical spine test results suggestive of mild arthritis and neuroforaminal stenosis. ----- Message ----- From: Interface, Incoming Ancillary Results - Imaging Results [id number] Sent: 08/14/2025 2:43 PM EDT To: Chintan Rust MD documented in this encounter Plan of Treatment Upcoming Encounters Date Type Department Care Team (Late st Contact Info) Description 09/14/2025 2:45 PM EST Office Visit Adult Medicine [facility] [address] [place] [address] Chintan Rust MD [address] [place] [address] 11/26/2025 9:00 AM EST Office Visit Orthopedic Surgery [facility] [address] [facility] [address] [place] [address] Amauri De La Torre MD [address] [place] [address] documented as of this encounter Visit Diagnoses Not on filedocumented in this encounter Additional Health Concerns Assessment Noted Time PHQ-9 Depression Total Score: 0 12/25/19 25 5:35 PM EST documented as of this encounter Care Teams Plant Engineer Relationship Specialty Start Date End Date Chintan Rust MD [address] [place] [address] PCP - General Internal Medicine 05/25/22 documented as of this encounter
== END 2025-09-09 11:00 | disposition home or self-care (01) ==
LOC: HO.HMGAL 11:00
PROVIDERS: PCP Internal Medicine; Visit Provider Registered Nurse Emergency
DX: J30.89 Other allergic rhinitis (principal)
CPT/HCPCS: 95117; 95165

== ENCOUNTER 2025-10-05 10:57 | Outpatient (AMB) | payer BC, SELFPAY ==
--- OUTSIDE RECORDS SUMMARY | 2025-10-05 14:03 | XMS_ITS | Encounter Summary ---
Author Organization [facility] Address [address] [place] [address] Care Team Providers Care Hatch Supervisor Name Role Phone Chintan Rust MD Primary Care Provider [phone]- [phone] Reason for Visit * Reason Onset Date Comments Results 08/14/2025 Encounter Details Date Type Department Care Team (Late st Contact Info) Description 08/14/2025 Results Follow-Up Adult Medicine [address] [phone] Chintan Rust MD [address] [place] [address] Social History Tobacco Use Types Packs/Day Years Used Date Smoking Tobacco: Former Cigarettes 0 Q uit: 07/06/1996 Smokeless Tobacco: Never Alcohol [...] for your loved ones. For example, child adolescent care or elderly care for an older adult? [...] Care Team (Late st Contact Info) Description 11/26/2025 9:00 AM EST Office Visit Orthopedic Surgery - [place] [address] [facility] [address] [place] [address] Amauri De La Torre MD [address] [place] [address] 03/17/2026 10:30 AM EDT Office Visit Adult Medicine [address] [phone] Chintan Rust MD [address] [place] [address] documented as of this encounter Visit Diagnoses Not on filedocumented in this encounter Additional Health Concerns Assessment Noted Time PHQ-9 Depression Total Score: 0 12/25/19 25 5:35 PM EST documented as of this encounter Care Teams Hatch Supervisor Relationship Specialty Start Date End Date Chintan Rust MD [address] [place] [address] PCP - General Internal Medicine 05/25/22 documented as of this encounter
--- OUTSIDE RECORDS SUMMARY | 2025-10-05 14:03 | XMS_ITS | Clinical Summary ---
Author Organization [facility] [address] [facility] Building Address [address] [place] [address] Phone Care Team Providers Care Swimming Coach Name Role Phone Chintan Rust MD Primary [...] by mouth 1 (one) time each day. 90 each 1 09/14/20 25 Active lisinopriL (PRINIVIL,ZEST RIL) 10 mg tablet Take 1 tablet (10 mg total) by mouth 1 (one) time each day. 90 tablet 1 09/14/20 25 Active rosuvastatin (CRESTOR) 5 mg tablet Take 1 tablet (5 mg total) by mouth 1 (one) time each day. 30 each 08/14/20 25 025 Discontinued(Re order) lisinopriL (PRINIVIL,ZEST RIL) 10 mg tablet Take 1 tablet (10 mg total) by mouth 1 (one) time each day. 30 each 08/14/20 25 025 Discontinued lisinopriL (PRINIVIL,ZEST RIL) 10 mg tablet TAKE 1 TABLET BY MOUTH 1 TIME EACH DAY. 90 tablet 1 09/08/20 025 Discontinued(Re order) Active Problems Problem Noted Date Diagnosed Date Abnormal CT scan 03/01/2023 Stenosis of right vertebral artery 03/01/2023 Osteopenia 05/15/2019 Overview (10/30/2024): Treating with calcium and vit D. Followed by [facility] Seasonal allergies 07/06/2014 Overview (10/30/2024): Dr Espinoza Encounters Date Type Department Care Team Description 09/14/2025 2:45 PM EST Office Visit [address] [phone] Chintan Rust MD Primary hypertension (Primary Dx) 08/27/2025 9:00 AM EDT Consult Orthopedic Surgery - [address] [place] [phone] Amauri De La Torre MD Bilateral carpal tunnel syndrome (Primary Dx); Right elbow pain 08/14/2025 11:01 AM EDT - 08/14/2025 11:59 PM EDT Hospital Encounter [address] [phone] Right upper extremity numbness; Neck pain Discharge Disposition: Home or Self Care 08/14/2025 10:30 AM EDT Office Visit [address] [phone] Chintan Rust MD Primary hypertension (Primary Dx); Right upper extremity numbness; Neck pain; Carpal tunnel syndrome of right wrist; Vertebrobasilar insufficiency; Osteopenia, unspecified location; Prediabetes; Mixed hyperlipidemia 08/14/2025 Results Follow-Up [address] [phone] Chintan Ruts MD 08/14/2025 Telephone Adult Medicine [address] [phone] Chintan Rust MD from Last 3 Months Immunizations Immunization Administration Dates Next Due Moderna SARS-CoV-2 COVID-19, mRNA, LNP-S, preservative free 02/27/2021 Td Tetanus diptheria (Tdvax) 7yo and older 03/01 Tdap Tetanus diptheria acell ular pertussis (Boostrix; Adacel) 7yo and older 05/05/2021 Surgical History Surgery Date Site/Laterality Comments KNEE SURGERY 11/12/2007 Left PROCEDURE: HISTORICAL KNEE SURGERY CHOLECYSTECTOMY 11/12/2002 PROCEDURE: [place] CHOLECYSTECTOMY; COMMENT: complications, required reconstruction of bile duct HAND SURGERY 11/12/1980 Left PROCEDURE: [place] UNLISTED PROCEDURE HANDS/FINGERS WISDOM TOOTH EXTRACTION 11/12/2003 [...] care for your loved ones. For example, childbirth educator or elderly care for an older adult? [...] Sign Reading Time Taken Comments Blood Pressure 115/75 09/14/2025 2:37 PM EST Pulse 76 09/14/2025 2:37 PM EST Temperature 35.8 C (96.4 F) 09/14/2025 2:37 PM EST Respiratory Rate - - Oxygen Saturation - - Inhaled Oxygen Concentration - - Weight 66.2 kg (146 lb) 09/14/2025 2:37 PM EST Height 158.8 cm (5' 2.5 ) 09/14/2025 2:37 PM EST Body Mass Index 26.28 09/14/2025 2:37 PM EST Plan of Treatment Upcoming Encounters Date Type Department Care Team (Late st Contact Info) Description 11/26/2025 9:00 AM EST Office Visit Orthopedic Surgery [facility] [address] [phone] Amauri De La Torre MD [address] [place] [id number] 03/17/2026 10:30 AM EDT Office Visit Adult Medicine [address] [phone] Chintan Rust MD [address] [place] [address] Health Maintenance Due Date Last Done Comments [...] EDT Right upper extremity numbness Neck pain HM HPV Routine 06/17/2024 HEPATITIS C SCREENING Routine 06/28/2015 from Last 3 Months or Most Recently Relevant to Health Maintenance Results * (ABNORMAL) Lipid panel with reflex to direct LDL (08/14/2025 11:28 AM EDT) Cholesterol 242(H) 0 - 200 mg/dL LAB CHEMISTRY METHOD 08/14/2025 4:37 PM EDT [facility] Triglycerides 133 0 - 150 mg/dL LAB CHEMISTRY METHOD 08/14/2025 4:37 PM T [facility] HDL 78 >=40 mg/dL LAB CHEMISTRY METHOD 08/14/2025 4:37 PM EDT [facility] LDL Calculated 137(H) 0 - 100 mg/dL LAB CHEMISTRY METHOD 08/14/2025 4:37 PM EDT [facility] Comment:Estimated LDL Calcul ated using equation: Total cholesterol - HDL cholesterol - (Triglycerides/5) VLDL Cholesterol Jed 26.6 mg/dL LAB CHEMISTRY METHOD 08/14/2025 4:37 PM EDT [facility] Non HDL Chol. (LDL+VLDL) 164(H) <145 mg/dL LAB CHEMISTRY METHOD 08/14/2025 4:37 PM EDT [facility] Chol/HDL Ratio 3.1 0.0 - 4.4 LAB CHEMISTRY METHOD 08/14/2025 4:37 PM EDT [facility] Blood Venous blood specimen / Unknown Venipuncture / Unknown 08/14/2025 11:28 AM EDT 08/14/2025 11:28 AM EDT Chintan Rust MD LAB BLOOD ORDERABLES Final Result [facility] [address] [place] [address], [place] [phone] * Hemoglobin A1c (08/14/2025 11:28 AM EDT) Hemoglobin A1C 5.8 <6.5 % LAB CHEMISTRY METHOD 08/14/2025 8:26 PM EDT [facility] Mean Bld Glu Estim. 120 mg/dL LAB CHEMISTRY METHOD 08/14/2025 8:26 PM EDT [facility] Blood Venous blood specimen / Unknown Venipuncture / Unknown 08/14/2025 11:28 AM EDT 08/14/2025 11:28 AM EDT Chintan Rust MD LAB BLOOD ORDERABLES Final Result [facility] [address] [place] [address], [place] [phone] * Vitamin B12 (08/14/2025 11:28 AM EDT) Vitamin B-12 331 250 - 900 pcg/mL LAB CHEMISTRY METHOD 08/14/2025 4:37 PM EDT [facility] Blood Venous blood specimen / Unknown Venipuncture / Unknown 08/14/2025 11:28 AM EDT 08/14/2025 11:28 AM EDT us Chintan Rust MD LAB BLOOD ORDERABLES Final Result [facility] [address] [place] [address], * Basic metabolic panel (08/14/2025 11:28 AM EDT) Sodium 139 133 - 145 mmol/L LAB CHEMISTRY METHOD 08/14/2025 4:13 PM [facility] Potassium 4.1 3.5 - 5.5 mmol/L LAB CHEMISTRY METHOD 08/14/2025 4:13 PM [facility] Chloride 106 96 - 110 mmol/L LAB CHEMISTRY METHOD 08/14/2025 4:13 PM [facility] CO2 27 21 - 32 mmol/L LAB CHEMISTRY METHOD 08/14/2025 4:13 PM [facility] Anion Gap 6 3 - 11 LAB CHEMISTRY METHOD 08/14/2025 4:13 PM [facility] Glucose 93 70 - 100 mg/dL LAB CHEMISTRY METHOD 08/14/2025 4:13 PM [facility] BUN 10 5 - 25 mg/dL LAB CHEMISTRY METHOD 08/14/2025 4:13 PM [facility] Creatinine 0.61 0.50 - 1.10 mg/dL LAB CHEMISTRY METHOD 08/14/2025 4:13 PM [facility] eGFR 101 >=60 mL/min/1. 73m2 LAB CHEMISTRY METHOD 08/14/2025 4:13 PM [facility] Comment:Calculation based on the Chronic Kidney Disease Epidemiology Collaboration (CKD-EPI) equation refit without adjustment for race. BUN/Creatinine Ratio 16.4 LAB CHEMISTRY METHOD 08/14/2025 4:13 PM [facility] Calcium 9.9 8.5 - 10.5 mg/dL LAB CHEMISTRY METHOD 08/14/2025 4:13 PM EDT [facility] Blood Venous blood specimen / Unknown Venipuncture / Unknown 08/14/2025 11:28 AM EDT 08/14/2025 11:28 AM EDT us Chintan Rust MD LAB BLOOD ORDERABLES Final Result [facility] [address] [place] [address], * XR Cervical Spine 4-5 Views (08/14/2025 [...] Signed Date: 08/14/2025 14:39 ET Workstation ID: [id number] Transcribed By: Self Edit Transcribed Date: 08/14/2025 [...] Signed Date: 08/14/2025 14:39 ET Workstation ID: [id number] Transcribed By: Self Edit Transcribed Date: 08/14/2025 14:37 ET Chintan Rust MD IMG XR PROCEDURES Final Res ult * Cervical Cancer Screening: HPV (06/17/2024) Cervical Cancer Screening: HPV negative, abstracted Historical Provider HEALTH MAINTENANCE Final Result * Hepatitis C Screening (06/28/2015) Hepatitis C Screening abstracted Historical Provider HEALTH MAINTENANCE Final Result from Last 3 Months or Most Recently Relevant to Health Maintenance Insurance [place]) Care Teams Swimming Coach Relationship Specialty Start Date End Date Chintan Rust MD [address] [place] [address] PCP - General Internal Medicine 05/25/22
== END 2025-10-05 10:57 | disposition home or self-care (01) ==
LOC: HO.HMGAL 10:57
PROVIDERS: PCP Internal Medicine; Visit Provider Registered Nurse Emergency
DX: J30.89 Other allergic rhinitis (principal)
CPT/HCPCS: 95117; 95165